=== PATIENT | female | born 1985 | race Caucasian/White ===

== ENCOUNTER 2016-07-18 07:58 | Emergency (ER) | payer SELFPAY ==
[2016-07-18] MEDS ORDERED: SODIUM CHLORIDE 0.9% 1,000 ML ONE (08:54)
[2016-07-18 09:32] LABS: ABSOLUTE NEUTROPHIL COUNT 2.5 K/mm3 (1.8-7.7); BASO % 0.6 % (0.2-1.0); EOS % 0.6 % (0.9-2.9); HEMATOCRIT 40.5 % (37.0-47.0); IMM NEUT% 0.2 % (0-1); LYMPH # 2.3 (1.0-4.8); LYMPH % 43.6 % (15-45); MEAN CELL VOLUME 90.8 fl (81.0-99.0); MEAN CORPUSCULAR HEMOGLOBIN 31.4 pg (27.0-31.0); MEAN CORPUSCULAR HGB CONC 34.6 g/dl (33.0-37.0); MEAN PLATELET VOLUME 9.7 fl (7.4-10.4); MONO # 0.4 (0.0-0.8); MONO % 8.2 % (4-12); NEUT % 46.8 % (43-75); PLATELET COUNT 309 K/mm3 (130-400); RED CELL DISTRIBUTION WIDTH 11.4 % (11.5-14.5)
[2016-07-18 09:41] LABS: ALB/GLOB RATIO 1.2 (>1.0); ALBUMIN 4.1 gm/dL (3.5-5.7); CALCIUM 9.4 mg/dL (8.6-10.3)
[2016-07-18] MEDS ORDERED: CYCLOBENZAPRINE HCL 10 MG TABLET ONE (10:08)
== END 2016-07-18 10:27 | disposition home or self-care (01) ==
LOC: ED 07:58
DX: J20.9 Acute bronchitis, unspecified (principal); R07.89 Other chest pain; Z88.6 Allergy status to analgesic agent; Z88.5 Allergy status to narcotic agent; Z88.0 Allergy status to penicillin
CPT/HCPCS: 84703; 85025; 80053; 99283 ×2; 96360; J7030